=== PATIENT | male | born 1990 | race Caucasian/White ===

== ENCOUNTER 2018-05-05 10:46 | Emergency (ER) | payer MEDICAID ==
[~2018-05-05] VITALS: Ht 182.9 cm; Wt 63.6 kg
[2018-05-05 11:02] VITALS: Ht 182.9 cm; Wt 63.6 kg
[2018-05-05 11:28] LABS: APPEARANCE HAZY (CLEAR); BASOPHILS 0.2 % (0-2); BILIRUBIN NEGATIVE (NEGATIVE); COLOR DK YELLOW (YELLOW); EOSINOPHILS 0.2 % (0-7); GLUCOSE NEGATIVE (NEGATIVE); HEMATOCRIT 46.2 % (42.0-54.0); HEMOGLOBIN 16.3 g/dL (13.5-17.5); IMMATURE GRANULOCYTES 0.3 % (0-5); KETONE SMALL mg/dL (NEGATIVE); LYMPHOCYTES 11.1 % (15-50); MCH 31.2 pg (26.0-34.0); MCHC 35.3 g/dL (31.0-37.0); MCV 88.5 fL (80.0-100.0); MONOCYTES 4.1 % (2-11); NEUTROPHILS 84.1 % (40-80); NITRITE NEGATIVE (NEGATIVE); PH 8.5 (5.0-6.0); PLATELET COUNT 300 10x3/uL (130-400); PROTEIN TRACE mg/dL (NEGATIVE); RBC 5.22 10x6/uL (4.20-6.10); RDW 13.1 % (11.5-14.5); SPECIFIC GRAVITY 1.005 (1.005-1.020); UROBILINOGEN NORMAL (NORMAL); WBC 11.2 10x3/uL (4.8-10.8)
[2018-05-05 11:35] LABS: BACTERIA MODERATE /hpf (NONE SEEN); EPITHELIAL CELLS RARE /hpf (0-5); RED CELLS - URINE RARE /hpf (0-5); WHITE CELLS - URINE 0-5 /hpf (0-5)
[2018-05-05 11:36] LABS: MUCUS >1+ /lpf (NONE SEEN)
[2018-05-05 11:44] LABS: ALBUMIN 4.7 g/dL (3.4-5.0); ANION GAP 15.7 mmol/L (8-16); BILIRUBIN - TOTAL 0.87 mg/dL (0.2-1.3); CALCIUM 10.2 mg/dL (8.5-10.1); CARBON DIOXIDE 31.1 mmol/L (21.0-32.0); CREATININE - SERUM 1.3 mg/dL (0.6-1.3); POTASSIUM - SERUM 3.8 mmol/L (3.5-5.1); PROTEIN - SERUM 8.4 g/dL (6.4-8.2)
[2018-05-05] MEDS ORDERED: ZOFRAN8 MG PO (15:29)
[2018-05-05] MEDS ORDERED: FLAGYL500 MG PO (15:29)
[2018-05-05 15:54] VITALS: BP 100/60
== END 2018-05-05 15:54 | disposition home or self-care (01) ==
LOC: D.ER 10:46
PROVIDERS: Family Medicine
DX: K52.9 Noninfective gastroenteritis and colitis, unspecified (principal); R10.13 Epigastric pain; F17.200 Nicotine dependence, unspecified, uncomplicated